=== PATIENT | male | born 1990 ===

== ENCOUNTER 2020-01-17 02:38 | Inpatient (IN) | payer MEDICAID, SELFPAY ==
[2020-01-17 13:22] VITALS: BP 116/61; PULSE 71; RESP 20; TEMP 36.6; O2SAT 93
[2020-01-17 14:00] VITALS: BP 116/61; PULSE 71; RESP 20; TEMP 36.6; O2SAT 93
[2020-01-17] MEDS: nicotine 2 mg Gum BUCCAL ×2 (16:13→19:05)
--- NOTE | 2020-01-17 16:23 | PC.NURSE ---
[facility] in [place], [place]. Pt states he is depressed, bipolar, and has relapsed into drug abuse. DOA Positive for THC and Meth. BAL is WNL. Pt states he has hx of cutting, and previous hospital stays in [facility]. Reports SI over last couple of weeks and admits he is coming down off of heroine and ice. Client is easy to engage, alert, and oriented. Denies HI/SI/ ADH at this time
--- NOTE | 2020-01-17 16:23 | PC.NURSE ---
Patient would like the staff to call him MEME.
[2020-01-17] MEDS: hyDROXYzine 25 mg Capsule 50 MG PO (19:04)
--- NOTE | 2020-01-17 19:06 | PC.NURSE ---
PRN VISTARIL PT C/O OF INCREASING ANXIETY. ADMINISTERED VISTARIL 50 MG PO. WILL MONITOR FOR MEDICATION EFFECTIVENESS.
[2020-01-17] MEDS: OLANZapine 5 mg ODT PO (20:07)
--- NOTE | 2020-01-17 20:08 | PC.NURSE ---
PRN ZYPREXA ZYDIS PT BECOMING INCREASINGLY AGITATED AND RESTLESS. ADMINISTERED ZYPREXA ZYDIS 5MG SUBLINGUAL. WILL MONITOR FOR MEDICATION EFFECTIVENESS.
--- NOTE | 2020-01-17 21:13 | ED_ITS ---
HPI - General Adult General: Time Seen by Provider: 01/17/20 02:43 Course Vital Signs: Vital signs: Vital Signs Temperature 98 F 01/17/20 14:00 Pulse Rate 71 01/17/20 14:00 Respiratory Rate 20 H 01/17/20 14:00 Blood Pressure 116/61 01/17/20 14:00 Pulse Oximetry 93 01/17/20 14:00 MDM - General Adult MDM Narrative: Medical decision making narrative: This is a duplicate chart please see the other chart for specifics. Discharge Plan Discharge Admit Provider: Wagner Benedict Condition: Stable Discharge Date/Time: 01/17/20 20:56 Coding Level of Care Code ED Enterprise Resource Analyst for Jose Robertson
[2020-01-17 21:42] VITALS: BP 120/67; PULSE 75; RESP 18; TEMP 36.7; O2SAT 97
[2020-01-18 06:00] VITALS: BP 109/64; PULSE 59; RESP 18; TEMP 36.8; O2SAT 98
[2020-01-18] MEDS: nicotine 2 mg Gum BUCCAL ×2 (06:08→14:42)
[2020-01-18 14:00] VITALS: BP 102/53; PULSE 67; RESP 18; TEMP 36.7; O2SAT 97
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
[2020-01-18] MEDS: lithium carbonate 300 mg Capsule PO (18:33)
[2020-01-18 20:11] VITALS: BP 114/66; PULSE 72; RESP 17; TEMP 36.6; O2SAT 96
[2020-01-19 06:00] VITALS: BP 112/69; PULSE 53; RESP 15; TEMP 36.3; O2SAT 93
[2020-01-19] MEDS: lithium carbonate 300 mg Capsule PO ×2 (08:38→16:57)
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
[2020-01-19] MEDS: nicotine 2 mg Gum BUCCAL (12:10)
[2020-01-19] MEDS: OLANZapine 5 mg ODT PO (12:47)
--- NOTE | 2020-01-19 12:49 | PC.NURSE ---
Addendum entered by Lyly Palmer LPN 01/19/20 13:37: MEDICATION EFFECTIVE, NO FURTHER C/O AGITATION/ANXIETY. PATIENT IS LYING DOWN RESTING. RESPIRATIONS EVEN AND UNLABORED. Original Note: PRN ZYPREXA ZYDIS ZYPREXA ZYDIS 5MG PO PER PATIENT C/O AGITATION/ANXIETY. WILL CONTINUE TO MONITOR FOR MEDICATION EFFECTIVENESS.
[2020-01-19 13:10] VITALS: BP 118/71; PULSE 75; RESP 18; TEMP 37; O2SAT 97
[2020-01-19 20:26] VITALS: BP 96/56; PULSE 95; RESP 15; TEMP 36.7; O2SAT 96
[2020-01-20 06:00] VITALS: BP 95/53; PULSE 63; RESP 15; TEMP 36.6; O2SAT 96
[2020-01-20] MEDS: nicotine 2 mg Gum BUCCAL ×3 (07:29→17:14)
[2020-01-20] MEDS: lithium carbonate 300 mg Capsule PO ×2 (08:24→17:14)
[2020-01-20 14:00] VITALS: PULSE 68; RESP 18; TEMP 37
[2020-01-20 21:56] VITALS: BP 123/73; PULSE 68; RESP 20; TEMP 36.8; O2SAT 98
[2020-01-21 06:00] VITALS: BP 98/47; PULSE 52; RESP 18; TEMP 36.9; O2SAT 96
[2020-01-21] MEDS: nicotine 2 mg Gum BUCCAL ×2 (06:39→10:21)
[2020-01-21] MEDS: lithium carbonate 300 mg Capsule PO (08:49)
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
[2020-01-21 11:03] VITALS: BP 98/47; PULSE 52; RESP 18; TEMP 36.9; O2SAT 96
== END 2020-01-21 15:54 | disposition home or self-care (01) | DRG 897 ==
LOC: ER 02:43 → NP 12:48
PROVIDERS: Admitting Provider Psychiatry & Neurology Psychiatry; Visit Provider Psychiatry & Neurology Psychiatry
DX: F11.23 Opioid dependence with withdrawal (principal); R45.851 Suicidal ideations; F15.229 Other stimulant dependence with intoxication, unspecified; F43.12 Post-traumatic stress disorder, chronic; F39 Unspecified mood [affective] disorder; Z62.810 Personal history of physical and sexual abuse in childhood; Z91.5 Personal history of self-harm
CPT/HCPCS: 12345; 99284

== ENCOUNTER 2020-01-17 12:28 | Emergency (ER) | payer MEDICAID, SELFPAY ==
[2020-01-17 12:33] VITALS: BP 107/58; PULSE 56; RESP 16; TEMP 36.5; O2SAT 98; BMI 20.9
--- NOTE | 2020-01-17 12:48 | W.ED.GENADLT ---
HPI - General Adult General: Chief complaint: Psychiatric Symptoms Stated complaint: 96 Time Seen by Provider: 01/17/20 12:46 Source: patient and police Mode of arrival: ambulatory Limitations: no limitations History of Present Illness: HPI narrative: Patient is a direct admit from an outside facility after being medically cleared. He presents here to the ER for medical clearance from [facility]. He has no sore throat, cough or shortness of breath. He has had no fever. Associated symptoms: Deny chest pain, dyspnea, headache(s), nausea, rash, palpitations, syncope or vomiting Review of Systems Const: Denies: fever(s) Eyes: Denies: change in vision ENMT: Denies: throat pain Card: Denies: chest pain, palpitations, syncope, pre-syncope or dyspnea on exertion Resp: Denies: dyspnea, productive cough or non-productive cough GI: Denies: abdominal pain, nausea, vomiting or diarrhea : Denies: flank pain, dysuria, urinary frequency or urinary urgency Musc: Denies: neck pain, back pain or extremity pain Skin/Breast: Denies: rash or pruritus Neuro: Denies: headache(s), numbness in extremities, weakness in extremities or dizziness Anshu/Lymph: Denies: easy bruising or easy bleeding All/Imm: Denies: urticaria Physical Exam Const: COMMON NORMALS: no acute distress, patient oriented x3, no limitations, healthy appearing and well nourished GENERAL APPEARANCE: cooperative, well kempt and well developed HENMT: COMMON NORMALS: normocephalic, atraumatic, external ears normal, EAC's normal and Normal external nose present HEAD & SCALP: normal to inspection, normocephalic and atraumatic FACE & SINUS: normal facial exam and face symmetric NOSE: Normal external nose present and Normal nares present EXTERNAL EAR: Yes external ears normal EXTERNAL AUDITORY CANAL: EAC's normal MOUTH: Normal oral and palatal mucosa present, lip normal and tongue normal Eye: COMMON NORMALS: Equal, round and reactive pupils present and conjunctivae normal GENERAL EYE: appearance normal, both eyes and all related structures ALIGNMENT: Yes alignment normal PERIORBITAL: periorbital findings normal EYELID: eyelids normal CONJUNCTIVA: Yes conjunctivae normal SCLERA: sclerae normal PUPIL: Yes Equal, round and reactive pupils present Neck/C-Spine: COMMON NORMALS: full ROM, no lymphadenopathy, supple, no meningeal signs and no JVD GENERAL: Yes normal visual inspection and Yes trachea midline Chest: COMMONS NORMALS: normal inspection of the chest and normal palpation of entire chest wall Resp: COMMON NORMALS: normal respiratory effort, No retractions and No use of accessory muscles EFFORT & INSPECTION: Yes able to speak in complete sentences and Yes symmetric chest movement AUSCULTATION: no crackles, no rales, no rhonchi and no wheezes Cardio: COMMON NORMALS: no JVD, regular rate, regular rhythm, S1 normal heart sound present and S2 normal heart sound present RATE: regular rate RHYTHM: regular rhythm HEART SOUNDS: S1 normal heart sound present, S2 normal heart sound present, no click, no gallops, no murmurs, no rubs and abnormal split S2 GI: COMMON NORMALS: Soft to palpation and No hepatosplenomegaly present PALPATION: Yes Soft to palpation, No Tenderness to palpation present (GI), No Guarding due to palpation present (GI), No Rigid due to palpation, Yes No hepatosplenomegaly present, No Hernia present, No Palpable mass present and No Pulsatile mass present : COMMON NORMALS: Yes no CVA tenderness BLADDER/KIDNEY EXAM: Yes no CVA tenderness Back/Pelvis: COMMON NORMALS: no CVA tenderness, thoracic and lumbar spine normal to inspection, no thoracic nor lumbar tenderness and thoraco-lumbar ROM normal Extremity: COMMON NORMALS: normal to inspection, full ROM, capillary refill normal, no joint enlargement, no clubbing, cyanosis or edema and no calf tenderness Neuro: COMMON NORMALS: patient oriented x3, CN's II-XII intact bilaterally, moves all extremities, no focal motor deficits and no sensory deficits noted MENINGEAL SIGNS: Yes no meningeal signs SPEECH: speech normal Psych: COMMON NORMALS: mental status grossly normal, Normal thought process present, cooperative, normal affect, speech normal and activity/motor behavior normal APPEARANCE: Yes well kempt SPEECH: Yes normal speech THOUGHT PROCESS: Normal thought process present Skin: COMMON NORMALS: no rashes or lesions noted, turgor normal, no jaundice, no petechiae and no mottling GENERAL SKIN EXAM: no rashes or lesions noted and turgor normal Course Vital Signs: Vital signs: Vital Signs Temperature 97.7 F 01/17/20 12:33 Pulse Rate 56 L 01/17/20 12:33 Respiratory Rate 16 01/17/20 12:33 Blood Pressure 107/58 01/17/20 12:33 Pulse Oximetry 98 01/17/20 12:33 MDM - General Adult MDM Narrative: Medical decision making narrative: Labs at outside facility were reviewed and appeared appropriate for admission. I reviewed the case in full with Dr. Benedict and he is agreeable to accept the patient. Discharge Plan Discharge Patient Disposition: Admitted As Inpatient Clinical Impression: Suicidal ideation Condition: Stable Discharge Date/Time: 01/17/20 13:05 Coding Level of Care Code ED Blending Tank Tender Helper for Chg Fwd Exam Comprehensive
--- NOTE | 2020-01-17 12:50 | PC.NURSE ---
Patient being transferred to NPU in stable condition with [place] and police officers that brought patient to be directed admitted to NPU. Patient very angry at delay and stated, I should have just stayed the fuck home and done some acid. Patient did calm when discovered all was arranged and patient was to be going to a room quickly. Dr. Reeves came and seen patient and approved his admission to NPU.
== END 2020-01-17 13:05 | disposition admitted as inpatient to this hospital (09) ==
LOC: ER 13:05
PROVIDERS: Emergency Provider Emergency Medicine
DX: R45.851 Suicidal ideations (principal)
CPT/HCPCS: 12345; 99281; 99283; 99284